=== PATIENT | male | born 1985 | race American Indian/Alaskan Native ===

== ENCOUNTER 2020-08-03 18:05 | Emergency (ER) | payer BC ==
[2020-08-03 19:56] VITALS: BP 173/109
--- NOTE | 2020-08-03 20:05 | Emergency Department Report ---
ED Lower Extremity HPI - General Chief Complaint: Extremity Injury, Lower Stated Complaint: LT KNEE POPPED Time Seen by Provider: 08/03/20 20:01 Source: patient Mode of arrival: Ambulatory Limitations: No Limitations - History of Present Illness Initial Comments: 35-year-old morbid obese -[place] male presents to the emergency room complaining of severe left knee pain while exercising today. Patient states he was doing lateral lunges when he felt something pop in his left knee. Patient states that pain was not that bad lay down and woke up in extreme pain with swelling decreased range of motion secondary to pain. Patient states he has a past medical history of hypertension and is currently on amlodipine 10 mg daily and losartan 100 mg daily. Patient denies any history of knee injuries in the past. MD Complaint: knee injury -: This afternoon Injury: Knee: Left (Extended leg laterally felt something pop now having swelling and pain) Type of Injury: unknown Place: street/outdoors ([facility]) Severity: severe Severity scale (0 -10): 10 Improves With: nothing Worsens With: weight bearing, movement, palpation Context: other (Exercising) Associated Symptoms: snap/pop sensation, swelling, unable to bear weight Treatments Prior to Arrival: cold therapy - Related Data Previous Rx's Medication Instructions Recorded Last Taken Type Ibuprofen [Motrin 800 MG tab] 800 mg PO Q8HR PRN #30 tablet 08/03/20 Unknown Rx traMADoL [Ultram 50 MG tab] 50 mg PO Q6HR PRN #12 tablet 08/03/20 Unknown Rx Allergies Allergy/AdvReac Type Severity Reaction Status Date / Time No Known Allergies Allergy Unverified 08/03/20 19:55 ED Review of Systems ROS: Stated complaint: LT KNEE POPPED Other details as noted in HPI Comment: All other systems reviewed and negative ED Past Medical Hx - Past Medical History Previous Medical History?: No - Surgical History Past Surgical History?: No - Medications Home Medications: Home Medications Medication Instructions Recorded Confirmed Last Taken Type Ibuprofen [Motrin 800 MG tab] 800 mg PO Q8HR PRN #30 tablet 08/03/20 Unknown Rx traMADoL [Ultram 50 MG tab] 50 mg PO Q6HR PRN #12 tablet 08/03/20 Unknown Rx ED Physical Exam - General Limitations: No Limitations General appearance: alert, obese - Head Head exam: Present: atraumatic, normocephalic - Eye Eye exam: Present: normal appearance - ENT ENT exam: Present: mucous membranes moist, normal external ear exam - Neck Neck exam: Present: normal inspection, full ROM - Respiratory Respiratory exam: Absent: accessory muscle use - Cardiovascular Cardiovascular Exam: Present: tachycardia - Expanded Lower Extremity Exam Left Knee exam: Present: full ROM, tenderness, swelling, effusion Lower Leg exam: Present: normal inspection, full ROM. Absent: tenderness, swelling Ankle exam: Present: normal inspection, full ROM Foot/Toe exam: Present: normal inspection, full ROM Neuro vascular tendon exam: Present: no vascular compromise - Back Exam Back exam: Present: normal inspection - Neurological Exam Neurological exam: Present: alert, oriented X3 - Psychiatric Psychiatric exam: Present: normal affect, normal mood - Skin Skin exam: Present: warm, dry, intact, normal color. Absent: rash ED Course Vital Signs 08/03/20 19:55 Temperature 98.6 F Pulse Rate 100 H Respiratory 20 Rate Blood Pressure 173/109 [Right] O2 Sat by Pulse 98 Oximetry ED Lower Extremity MDM - Radiology Data Radiology results: report reviewed [facility] [address] [place] [address] XRay Report Signed Patient: CHRIS MORRISON JR MR#: [id number] : 1985 Acct:[id number] Age/Sex: 35 / M ADM Date: 08/03/20 Loc: ED Attending Dr: Ordering Physician: LIZABETH ANGUIANO Date of Service: 08/03/20 Procedure(s): XR knee 3V RT Accession Number(s): [id number] cc: LIZABETH ANGUIANO Fluoro Time In Minutes: RIGHT KNEE 3 VIEWS INDICATION / CLINICAL INFORMATION: L knee injury felt something pop swelling and pop COMPARISON: None available. FINDINGS: BONES / JOINT(S): No acute fracture or subluxation. No significant arthritis. SOFT TISSUES: No significant abnormality. ADDITIONAL FINDINGS: None. Signer Name: Manan Smith MD Signed: 08/03/2020 8:26 PM Workstation Name: [id number] Transcribed By: Dictated By: Manan Smith MD Electronically Authenticated By: Manan Smith MD Signed Date/Time: 08/03/202025 DD/ 23 TD/TT: Print Cancel - Medical Decision Making 35-year-old morbid obese -[place] male presents to the emergency room complaining of severe left knee pain while exercising today. Patient states he was doing lateral lunges when he felt something pop in his left knee. Patient states that pain was not that bad lay down and woke up in extreme pain with swelling decreased range of motion secondary to pain. Patient states he has a past medical history of hypertension and is currently on amlodipine 10 mg daily and losartan 100 mg daily. Patient denies any history of knee injuries in the past. Three-view x-ray left knee Critical care attestation.: If time is entered above; I have spent that time in minutes in the direct care of this critically ill patient, excluding procedure time. ED Disposition Clinical Impression: Severely overweight Knee injury Qualifiers: Encounter type: initial encounter Laterality: left Qualified Code(s): S89.92XA - Unspecified injury of left lower leg, initial encounter Disposition: - TO HOME OR SELFCARE Is pt being admited?: No Does the pt Need Aspirin: No Condition: Stable Instructions: Knee Sprain, Adult, [id number] Additional Instructions: X-ray is negative for any fracture. I do recommend following up with orthopedic as she may need further imaging that can be ordered by outpatient orthopedist. Please wear knee immobilizer and use crutches to mobilize. Pain medication as needed. Do not operate heavy machinery while taking tramadol. Ice to your injury. Information below for provider. Prescriptions: Ibuprofen [Motrin 800 MG tab] 800 mg PO Q8HR PRN #30 tablet PRN Reason: Pain , Severe (7-10) traMADoL [Ultram 50 MG tab] 50 mg PO Q6HR PRN #12 tablet PRN Reason: Pain Referrals: KENDALL DERAS MD [Staff Physician] - 3-5 Days Forms: Work/School Release Form(ED)
--- NOTE | 2020-08-03 20:30 | XRay Report ---
RIGHT KNEE 3 VIEWS INDICATION / CLINICAL INFORMATION: L knee injury felt something pop swelling and pop COMPARISON: None available. FINDINGS: BONES / JOINT(S): No acute fracture or subluxation. No significant arthritis. SOFT TISSUES: No significant abnormality. ADDITIONAL FINDINGS: None. Signer Name: Manan Smith MD Signed: 08/03/2020 8:26 PM Workstation Name: [id number]
== END 2020-08-03 22:16 | disposition home or self-care (01) ==
LOC: ED 18:05
DX: S89.92XA Unspecified injury of left lower leg, initial encounter (principal); E66.3 Overweight; Z68.41 Body mass index [BMI] 40.0-44.9, adult; Z79.1 Long term (current) use of non-steroidal anti-inflammatories (NSAID); Z79.899 Other long term (current) drug therapy; X58.XXXA Exposure to other specified factors, initial encounter; Y93.89 Activity, other specified; Y92.89 Other specified places as the place of occurrence of the external cause; Y99.8 Other external cause status
CPT/HCPCS: 99283